=== PATIENT | male | born 1980 | race Hispanic/Latino ===

== ENCOUNTER 2018-12-29 07:15 | Day surgery (SDC) | payer OTHER ==
[2018-12-26 09:46] VITALS: BMI 36.6
[2018-12-29 07:26] LABS: #Basophils 0.1 thou/uL (0.0-0.2); #Eosinphils 0.2 thou/uL (0.0-0.7); #Lymphocytes 2.5 thou/uL (1.20-3.40); #Monocytes 0.4 thou/uL (0.11-0.59); #Neutrophils 3.5 thou/uL (1.40-6.50); %Basophils 1.1 % (0.0-1.0); %Eosinophils 2.4 % (0.0-10.0); %Lymphocytes 37.6 % (21.0-51.0); %Monocytes 5.4 % (0.0-10.0); %Neutrophils 53.5 % (42.0-75.0); Hemoglobin 16.7 g/dL (14.0-18.0); Mean Corpuscular HGB CONC 32.8 g/dL (32.0-36.0); Mean Corpuscular Hemoglobin 29.8 pg (27.0-31.0); Mean Platelet Volume 7.5 fL (7.4-10.4); Platelet Count 184 thou/uL (130-400); RBC Distribution Width 12.3 % (11.5-14.5); White Blood Cell (WBC) Count 6.5 thou/uL (4.8-10.8)
[2018-12-29 07:37] LABS: PTT 29.3 SEC (22.9-36.1)
[2018-12-29] MEDS ORDERED: Sodium Bicarbonate 2.5 MEQ/5 ML VIAL ONE (07:38)
[2018-12-29] MEDS ORDERED: Lidocaine 1% PF 5 ML VIAL ONE (07:38)
[2018-12-29] MEDS ORDERED: Midazolam HCl 2 mg/2 ml Vial ONE (07:38)
[2018-12-29] MEDS ORDERED: Fentanyl 100 MCG/2 ML VIAL ONE (07:38)
[2018-12-29 08:39] VITALS: BP 139/92; TEMP 97.5
--- NOTE | 2018-12-29 11:13 | ULT ---
RIGHT UPPER QUADRANT ULTRASOUND: HISTORY: Elevated liver enzymes. FINDINGS: The liver demonstrates increased echogenicity consistent with fatty infiltration. No focal mass or i ntrahepatic ductal dilatation is seen. No gallstones, gallbladder wall thickening, or pericholecysti c fluid is identified. There is a 4 mm nonshadowing echogenic focus arising from the wall of the gal lbladder without mobility, consistent with polyp. The common duct measures 6 mm in diameter. The pa ncreas is not well visualized. The right kidney is normal. No free fluid is seen in Morison's pouch . IMPRESSION: 1. Fatty liver. 2. A 4 mm gallbladder polyp. POS: [facility]
--- NOTE | 2018-12-29 15:34 | ULT ---
ULTRASOUND GUIDED RANDOM RIGHT HEPATIC LOBE BIOPSY: 12/29/2018 HISTORY: Elevated liver function tests. TECHNIQUE: The procedure, including the risks and complications, was explained to the patient, and informed cons ent was obtained. The patient was placed on the sonography table in the supine position. Conscious sedation was performed with the intravenous administration of 1 mg of Versed and 50 mcg of fentanyl. Limited sonographic evaluation of the abdomen was performed, and an area overlying the inferior aspec t of the right hepatic lobe, in the mid axillary line, was marked, and the area was then meticulously prepped and draped in the usual sterile fashion. The skin and subcutaneous tissues were infiltrate with buffered 1% Lidocaine for local anesthesia. U tilizing concurrent real-time ultrasound guidance, a 17-gauge guide needle was advanced into the guzman pheral aspect of the right hepatic lobe. Utilizing a coaxial technique, a single 18-gauge core needl e biopsy specimen was obtained. No significant bleeding was experienced post biopsy. As a result, the needle was removed, and hemost asis was achieved with direct pressure for approximately 10 minutes. Sonographic imaging demonstrate s no perihepatic fluid collection or evidence of hematoma at the site of the biopsy. The patient was transported to the radiology holding room in stable condition. The patient was place d in the right lateral decubitus position for one hour. The patient's vital signs remained stable du ring the procedure, as well as post procedure. The patient was monitored in the radiology nurses' ho lding area without complication and was discharged in stable condition, without discomfort and with s table vital signs. IMPRESSION: 1. Technically successful ultrasound-guided right hepatic lobe biopsy. A single 18-gauge core needl e biopsy specimen was obtained. 2. Fatty infiltration of the liver, better visualized on right upper quadrant ultrasound, which was obtained just prior to this study. POS: [facility]
== END 2018-12-29 13:00 | disposition home or self-care (01) ==
LOC: ULT 07:15
PROVIDERS: ATTEND Internal Medicine
PROC: 0FB13ZX Excision of Right Lobe Liver, Percutaneous Approach, Diagnostic (ICD-10-PCS; principal; 2018-12-29)
DX: K76.0 Fatty (change of) liver, not elsewhere classified (principal); K92.1 Melena; F41.9 Anxiety disorder, unspecified; F32.9 Major depressive disorder, single episode, unspecified; E78.00 Pure hypercholesterolemia, unspecified; D89.89 Other specified disorders involving the immune mechanism, not elsewhere classified; K82.4 Cholesterolosis of gallbladder; Z79.51 Long term (current) use of inhaled steroids; Z79.899 Other long term (current) drug therapy
CPT/HCPCS: 36415; 47000; 76705; 76942; 85025; 85610; 85730; 88307; 88313; J2001; J2250; J3010

== ENCOUNTER 2019-10-20 07:20 | Outpatient (CLI) | payer OTHER ==
--- NOTE | 2019-10-20 08:41 | ULT ---
ULTRASOUND ABDOMEN: HISTORY: Abdominal pain FINDINGS: The liver demonstrates increased echogenicity consistent with fatty infiltration. There is a 3.2 mm n onshadowing immobile echogenic focus arising from the wall of the gallbladder, consistent with polyp. No shadowing gallstones, gallbladder wall thickening or pericholecystic fluid is seen. The spleen, kidneys and visualized portions of the pancreas, aorta and IVC appear normal. The common duct measures 2mm in diameter. No free fluid is seen. IMPRESSION: 1. Fatty liver 2. A 3 mm gallbladder polyp.
== END 2019-10-20 07:21 | disposition home or self-care (01) ==
LOC: ULT 07:20
DX: K76.0 Fatty (change of) liver, not elsewhere classified (principal); K82.4 Cholesterolosis of gallbladder
CPT/HCPCS: 93975

== ENCOUNTER 2021-03-07 10:45 | Outpatient (CLI) | payer OTHER | END 2021-03-07 10:46 | disposition home or self-care (01) | LOC: CT 10:45 | PROVIDERS: ATTEND Surgery | DX: M54.5 Low back pain (principal); M89.9 Disorder of bone, unspecified; D16.9 Benign neoplasm of bone and articular cartilage, unspecified | CPT/HCPCS: 72131; 72148 ==

== ENCOUNTER 2022-10-05 22:01 | Emergency (ER) | payer BC, OTHER ==
[2022-10-05] MEDS ORDERED: Boostrix 0.5 ML (Tdap) VIAL (>/=7 yrs of age) ONE (22:47)
== END 2022-10-05 23:07 | disposition home or self-care (01) ==
LOC: ERS 22:01
DX: S61.210A Laceration without foreign body of right index finger without damage to nail, initial encounter (principal); W26.0XXA Contact with knife, initial encounter; Y92.009 Unspecified place in unspecified non-institutional (private) residence as the place of occurrence of the external cause; Z23 Encounter for immunization
CPT/HCPCS: 12001; 90471; 90715

== ENCOUNTER 2025-09-29 08:00 | Outpatient (CLI) | payer OTHER | END 2025-09-29 08:01 | disposition home or self-care (01) | LOC: PET 08:00 | PROVIDERS: ATTEND Internal Medicine | DX: C25.3 Malignant neoplasm of pancreatic duct (principal); K86.89 Other specified diseases of pancreas ==